=== PATIENT | male | born 1970 | race Caucasian/White ===

== ENCOUNTER 2022-10-21 14:00 | Inpatient (IN) | payer BC ==
[2022-10-21] MEDS ORDERED: NOREPINEPHRINE 8 MG/250 ML-D5W 250 ML ONE ×2 (14:06→20:03)
[2022-10-21] MEDS ORDERED: EPINEPHrine 1 MG/10 ML Abboject SYRINGE ONE (14:06)
[2022-10-21] MEDS ORDERED: Calcium Chloride 1 GM/10 ML Abboject SYRINGE ONE (14:06)
[2022-10-21] MEDS ORDERED: Fentanyl 100 MCG/2 ML VIAL ONE ×2 (14:08→14:49)
[2022-10-21] MEDS ORDERED: Midazolam HCl 2 mg/2 ml Vial ONE (14:08)
[2022-10-21 14:22] LABS: Mean Corpuscular HGB CONC 33.5 g/dL (32.0-36.0); Mean Corpuscular Hemoglobin 36.7 pg (27.0-31.0); Mean Platelet Volume 8.1 fL (7.4-10.4); Platelet Count 52 10x3/uL (130-400); RBC Distribution Width 13.2 % (11.5-14.5); Red Blood Cell (RBC) Count 3.27 mill/uL (4.70-6.10)
[2022-10-21] MEDS ORDERED: Potassium Chloride 20 MEQ/100 ML PREMIX BAG ONE ×2 (14:26→19:23)
[2022-10-21] MEDS ORDERED: Potassium Chloride 20 MEQ TAB ONE (14:26)
[2022-10-21 14:36] LABS: Actual Bicarbonate (HCO3v) 17 mEq/L (22-28); Analyzer IN Cardio ER; pH (venous) 7.16 (7.32-7.43)
[2022-10-21 14:37] LABS: Base Excess -11.9 mEq/L (-2.0 to +3.0); Chloride (VBG) 84 mmol/L (98-106); Hemoglobin (Hb) 13.2 g/dL (13.1-17.2); Potassium (VBG) 2.19 mmol/L (3.70-5.30); Sodium 126.8 mmol/L (133-146)
[2022-10-21 14:38] LABS: Calcium, Ionized (venous) 0.95 mmol/L (1.16-1.32)
[2022-10-21 14:44] LABS: Acetaminophen Less than 10.0 mcg/mL (10.0-30.0); Alcohol 135 mg/dL (Less than 10); Salicylate Less than 8.0 mg/dL (15.0-30.0)
[2022-10-21] MEDS ORDERED: Fentanyl CADD 100 ML IV SCH ×2 (14:45→17:45)
[2022-10-21 14:48] LABS: Band 8 % (5-11); Lymphocytes 24 % (21-51); MDiff Complete? YES; Macrocytosis SLIGHT = 6-15 cells (100X) (0-5/hpf); Metamyelocyte 2 % (0-0); Monocytes 3 % (0-10); Myelocyte 1 % (0-0); Neutrophil 61 % (42-75); Nucleated RBC 9 % (0); Platelet Morphology Comment Appears Decreased; Polychromasia SLIGHT = 2-3 cells (100X) (0-2/hpf); Reactive Lymphocytes 1 % (0-10); White Blood Cell (WBC) Count 13.3 10x3/uL (4.8-10.8)
[2022-10-21 15:27] LABS: Actual Bicarbonate (HCO3a) 16.4 mEq/L (22-28); Base Excess (BEa) -9.5 mEq/L (-2.0 to +3.0); CO2 Tension 35.9 mmHg (35.0-45.0); Calcium, Ionized (arterial) 0.95 mmol/L (1.12-1.30); Carboxyhemoglobin (COHb) 0.3 gm% (0.0-3.0); Hemoglobin (Hb) 12.8 g/dL (14.0-18.0); pH, Arterial 7.28 (7.35-7.45)
[2022-10-21 15:30] LABS: Bacteria/HPF None Seen HPF (None Seen); Bilirubin Negative (Negative); Blood, Urine Trace (Negative); Clarity Turbid (Clear); Glucose, Urine (Dipstick) Normal (Negative); Ketone, Urine Negative (Negative); Leukocyte Negative Leu/uL (Negative); Nitrite Negative (Negative); Protein, Urine (Dipstick) Negative (Neg-Trace); RBC/HPF 0-3 HPF (0-3); Squamous Epithelial 0-3 HPF (0-3); Urobilinogen Normal mg/dL (Less than 2); WBC/HPF 0-3 HPF (0-3)
[2022-10-21 15:36] LABS: Potassium - ABG Lab 2.41 mmol/L (3.70-5.30)
[2022-10-21 15:37] LABS: ALV-art Gradient 561.125 mmHg (0-20); Puncture Site RBA
[2022-10-21 15:37] LABS: Amphetamine Not Detected (NotDetected); Barbiturates Screen Not Detected (NotDetected); Benzodiazepine Screen Not Detected (NotDetected); Cocaine Metabolite Screen Not Detected (NotDetected); Methadone Not Detected (NotDetected); Methamphetamine Not Detected (NotDetected); Opiate Screen Not Detected (NotDetected); Oxycodone Screen Not Detected (NotDetected); Phencyclidine (PCP) Not Detected (NotDetected); THC/Cannabinoid Screen Not Detected (NotDetected); Tricyclic Screen Not Detected (NotDetected)
[2022-10-21 15:39] LABS: ALT (SGPT) 82 U/L (8-55); AST (SGOT) 234 U/L (5-34); Albumin 2.2 g/dL (3.5-5.0); Alkaline Phosphatase 231 U/L (40-110); Anion Gap 30 mmol/L (10-20); BUN (Urea Nitrogen) 6 mg/dL (8.9-20.6); Bilirubin, Total 6.4 mg/dL (0.2-1.2); Calc. Creatinine Clearance 0 mL/min (70-130); Calcium 7.8 mg/dL (7.8-10.44); Carbon Dioxide 17 mmol/L (22-29); Chloride 84 mmol/L (98-107); Estimated GFR 68; Globulin 4.2 g/dL (2.4-3.5); Glucose 160 mg/dL (70-105); Lipase 58 U/L (8-78); Magnesium 1.9 mg/dL (1.6-2.6); Protein, Total 6.4 g/dL (6.0-8.3); Sodium 129 mmol/L (136-145)
[2022-10-21 15:47] LABS: Potassium 2.1 mmol/L (3.5-5.1)
[2022-10-21 16:17] LABS: SARS-CoV-2 NAA Rapid Test Not Detected (NotDetected)
[2022-10-21] MEDS ORDERED: Cefepime 2 GM VIAL ONE (16:20)
[2022-10-21] MEDS ORDERED: Vancomycin 1.5 GRAM/300 ML BAG 1.5 GM in Premix Bag 1 BAG IVPB SCH (16:30)
[2022-10-21] MEDS ORDERED: Acetaminophen 325 MG TAB PO PRN (17:08)
[2022-10-21] MEDS ORDERED: NOREPINEPHRINE 8 MG/250 ML-D5W 250 ML IVPB PRN (17:10)
[2022-10-21] MEDS ORDERED: Electrolyte Replacement Protocol 1 EACH IVPB SCH (17:10)
[2022-10-21] MEDS ORDERED: Ventilator Sedation Protocol 1 EACH FS SCH (17:15)
[2022-10-21] MEDS ORDERED: Hydrocortisone Sod Succ/PF 100 mg/2 ml Vial ONE (17:16)
[2022-10-21] MEDS ORDERED: Electrolyte Replacement Protocol 1 EACH FS PRN (17:31)
[2022-10-21] MEDS ORDERED: DISCONTINUE PREVIOUS NARCOTIC PAIN MEDICATIONS AND BENZODIAZEPINES FS SCH (17:45)
[2022-10-21] MEDS ORDERED: Ventilator Sedation Protocol 1 EACH FS PRN (17:45)
[2022-10-21] MEDS ORDERED: Fentanyl BOLUS 250 ML IVPB PRN (17:45)
[2022-10-21] MEDS ORDERED: Lorazepam 2 MG/ML VIAL SLOW IVP PRN (17:45)
[2022-10-21] MEDS ORDERED: Morphine 4 MG/ML VIAL SLOW IVP PRN (17:45)
[2022-10-21] MEDS ORDERED: Propofol BOLUS 1,000 MG/100 ML VIAL IV PRN (17:45)
[2022-10-21] MEDS ORDERED: Propofol 1,000 MG/100 ML VIAL IV PRN (17:45)
[2022-10-21] MEDS ORDERED: EPINEPHrine 1 MG/ML VIAL ONE ×3 (17:45→21:49)
[2022-10-21] MEDS ORDERED: Sodium Chloride 0.9% 1,000 ML IV SCH (18:00)
[2022-10-21] MEDS ORDERED: Albumin 25% 25 GM/100 ML BOT IVPB SCH (18:15)
[2022-10-21] MEDS ORDERED: Electrolyte Replacement Protocol FS PRN (18:30)
[2022-10-21] MEDS ORDERED: Vasopressin 20 UNIT, Admixture Fee 1 EACH in Sodium Chloride 0.9% 50 ML IV SCH (18:30)
[2022-10-21] MEDS ORDERED: Potassium Chloride 20 MEQ in Premix Bag 1 BAG IVPB SCH (18:30)
[2022-10-21] MEDS ORDERED: EPINEPHrine 4 MG in Dextrose 5% in Water 250 ML IV SCH (18:30)
[2022-10-21] MEDS ORDERED: Magnesium 2 GM/50 ML(in water) 2 GM in Premix Bag 1 BAG IVPB SCH (19:00)
[2022-10-21 19:05] LABS: Troponin I 1.503 ng/mL (< 0.028)
[2022-10-21 19:15] LABS: Anion Gap 34 mmol/L (10-20); BUN (Urea Nitrogen) 6 mg/dL (8.9-20.6); Calc. Creatinine Clearance 0 mL/min (70-130); Calcium 7.1 mg/dL (7.8-10.44); Carbon Dioxide 13 mmol/L (22-29); Chloride 87 mmol/L (98-107); Estimated GFR 56; Glucose 123 mg/dL (70-105); Magnesium 1.7 mg/dL (1.6-2.6); Phosphorus 8.4 mg/dL (2.3-4.7); Sodium 131 mmol/L (136-145)
[2022-10-21 19:23] LABS: Potassium 2.5 mmol/L (3.5-5.1)
[2022-10-21 19:52] LABS: Lactic Acid 20.4 mmol/L (0.5-2.2)
[2022-10-21] MEDS ORDERED: Thiamine HCl 200 MG/2 ML VIAL SLOW IVP SCH (20:00)
[2022-10-21] MEDS ORDERED: Magnesium 2 GM/50 ML BAG (IN WATER) ONE (20:12)
[2022-10-21] MEDS ORDERED: Famotidine/PF 20 mg/2ml Vial SLOW IVP SCH (21:00)
[2022-10-21] MEDS ORDERED: Cefepime 1 GM in Sodium Chloride 0.9% 100 ML IVPB SCH (21:00)
[2022-10-21 22:36] LABS: Troponin I 7.167 ng/mL (< 0.028)
== END 2022-10-22 05:11 | disposition expired | DRG 640 ==
LOC: ERS 14:00 → ERHOLD 14:07
PROVIDERS: ADMIT Emergency Medicine; ATTEND Emergency Medicine
PROC: 0DH67UZ Insertion of Feeding Device into Stomach, Via Natural or Artificial Opening (ICD-10-PCS; principal; 2022-10-21)
PROC: 3E0G76Z Introduction of Nutritional Substance into Upper GI, Via Natural or Artificial Opening (ICD-10-PCS; 2022-10-21)
PROC: 5A12012 Performance of Cardiac Output, Single, Manual (ICD-10-PCS; 2022-10-21)
PROC: 0W9B30Z Drainage of Left Pleural Cavity with Drainage Device, Percutaneous Approach (ICD-10-PCS; 2022-10-21)
PROC: 0T9B70Z Drainage of Bladder with Drainage Device, Via Natural or Artificial Opening (ICD-10-PCS; 2022-10-21)
PROC: 06HY33Z Insertion of Infusion Device into Lower Vein, Percutaneous Approach (ICD-10-PCS; 2022-10-21)
PROC: 3E043XZ Introduction of Vasopressor into Central Vein, Percutaneous Approach (ICD-10-PCS; 2022-10-21)
PROC: 30233J1 Transfusion of Nonautologous Serum Albumin into Peripheral Vein, Percutaneous Approach (ICD-10-PCS; 2022-10-21)
PROC: 5A1935Z Respiratory Ventilation, Less than 24 Consecutive Hours (ICD-10-PCS; 2022-10-21)
DX: E87.6 Hypokalemia (principal); J96.00 Acute respiratory failure, unspecified whether with hypoxia or hypercapnia; I47.20 Ventricular tachycardia, unspecified; I42.6 Alcoholic cardiomyopathy; S22.42XA Multiple fractures of ribs, left side, initial encounter for closed fracture; J93.9 Pneumothorax, unspecified; J90 Pleural effusion, not elsewhere classified; N17.9 Acute kidney failure, unspecified; E46 Unspecified protein-calorie malnutrition; E87.1 Hypo-osmolality and hyponatremia; E87.20 Acidosis, unspecified; Z66 Do not resuscitate; I95.9 Hypotension, unspecified; I46.9 Cardiac arrest, cause unspecified; R53.1 Weakness; F10.10 Alcohol abuse, uncomplicated; R57.0 Cardiogenic shock; R73.9 Hyperglycemia, unspecified; D64.9 Anemia, unspecified; K70.30 Alcoholic cirrhosis of liver without ascites; Z20.822 Contact with and (suspected) exposure to COVID-19; Z88.8 Allergy status to other drugs, medicaments and biological substances; Z98.890 Other specified postprocedural states; I49.01 Ventricular fibrillation; I46.8 Cardiac arrest due to other underlying condition
CPT/HCPCS: 31500; 32551; 36415; 36556; 36600; 51702; 71045; 80053; 80306; 80307; 81003; 81015; 82805; 83605; 83690; 83735; 84100; 84145; 84484; 85025; 86850; 86900; 86901; 87040; 92950; 93005; 94002; 96365; 96366; 96367; 96368; 96375; 99292; J0171; J0692; J1720; J2250; J3010; J3370; J3411; J3475; J3480; J7050; P9047